=== PATIENT | female | born 1955 ===

== ENCOUNTER 2017-06-27 14:02 | Inpatient (IN) | payer MEDICAID ==
[2017-06-27 14:03] VITALS: BMI 28.9
--- NOTE | 2017-06-27 14:44 | ED PDOC ---
Syncope/Near Syncope/Dizziness Time Seen by Provider: 06/27/17 14:19 Chief Complaint (Nursing): Syncope Chief Complaint (Provider): Syncope History Per: Patient, Family (Daughter) History/Exam Limitations: no limitations Additional Complaint(s): 62 y/o female with a past medical history of hypertension, diabetes, hypothyroidism, and hypercholesterolemia who presents to the emergency department accompanied by daughter after experiencing a syncopal episode prior to arrival. As per history from daughter, she witnessed patient sitting at the table as she started to lean down towards the floor and initially thought she was going to reach for something but then realized and caught her before she fell and laid her down. States patient had loss of consciousness for 1 minute and noted she was having shakes when she woke up. Patient states she has chills and is feeling anxious at the moment because she had passed out before in the past that only lasted seconds without loss of consciousness compared to this episode that was stronger and lasted longer. She also states having right leg swelling ongoing since her knee surgery about 1 month go that has been improving since with intermittent shortness of breath for the last 2 months although she is currently no short of breath. Denies lethargy or postictal state after episode,convulsive activity, chest pain, shortness of breath, or headache. Of note, patient states she had a bad headache last night that resolved spontaneously as well as experiencing difficulty sleeping for three days ago that also resolved on its on. Reports she had a good amount of sleep last night and ate breakfast around 8am this morning but had not eaten lunch yet. PMD: De. Darlyn Castillo MD Certified Prosthetist/Orthotist: Dr. Yfn SANABRIA Past Medical History Reviewed: Historical Data, Nursing Documentation, Vital Signs Vital Signs: Last Vital Signs Temp 98.3 F 06/27/17 14:08 Pulse 71 06/27/17 14:08 Resp 16 06/27/17 14:08 BP 137/70 06/27/17 14:08 Pulse Ox 100 06/27/17 14:08 - Medical History PMH: Diabetes, HTN, Hypercholesterolemia, Hypothyroidism Denies: HIV, Chronic Kidney Disease - Surgical History Surgical History: (x3) - Family History Family History: States: Diabetes, Hypertension - Social History Current smoker - smoking cessation education provided: No Alcohol: None Drugs: Denies - Home Medications Home Medications: Ambulatory Orders Medication Instructions Recorded Aspirin [Aspirin EC] 81 mg PO DAILY 05/28/15 Enalapril Maleate [Vasotec] 2.5 mg PO DAILY 05/28/15 Levothyroxine Sodium [Synthroid] 75 mcg PO DAILY 05/28/15 Simvastatin 10 mg PO HS 05/28/15 Insulin Lispro [humALOG] 30 unit SC DAILY 06/27/17 Insulin Lispro [humALOG] 35 unit SC DAILY 06/27/17 - Allergies Allergies/Adverse Reactions: Allergies Allergy/AdvReac Type Severity Reaction Status Date / Time No Known Allergies Allergy Verified 06/27/17 14:08 Review of Systems ROS Statement: Except As Marked, All Systems Reviewed And Found Negative (As per HPI otherwise negative) Constitutional: Positive for: Chills (Shakes). Negative for: Other (Lethargy or postictal state or convulsive activity) Cardiovascular: Negative for: Chest Pain Respiratory: Negative for: Shortness of Breath Musculoskeletal: Positive for: Other (Right leg swelling status post knee surgery (improving)) Neurological: Positive for: Other (Syncope and Loss of consciousness ). Negative for: Headache Psych: Positive for: Anxiety Physical Exam - Reviewed Nursing Documentation Reviewed: Yes Vital Signs Reviewed: Yes - Physical Exam Appears: Positive for: Non-toxic, In Acute Distress (tired appearing and anxious ) Head Exam: Positive for: ATRAUMATIC, NORMOCEPHALIC Skin: Positive for: Warm, Dry Eye Exam: Positive for: EOMI, PERRL. Negative for: Nystagmus ENT: Positive for: Other (tacky mucus membranes) Neck: Positive for: Painless ROM, Supple Cardiovascular/Chest: Positive for: Regular Rate, Rhythm, Chest Non Tender. Negative for: Murmur Respiratory: Positive for: Normal Breath Sounds. Negative for: Respiratory Distress Gastrointestinal/Abdominal: Positive for: Soft. Negative for: Tenderness Back: Positive for: Normal Inspection. Negative for: Decreased ROM Extremity: Positive for: Normal ROM. Negative for: Deformity Lymphatic: Negative for: Adenopathy Neurologic/Psych: Positive for: Alert, health services rn II-XII (intact), Oriented (x3), Mood/ Affect (anxious affect). Negative for: Motor/Sensory Deficits, Aphasia, Facial Droop - Laboratory Results Result Diagrams: 06/27/17 14:50 06/29/17 10:25 - ECG O2 Sat by Pulse Oximetry: 100 (RA) Pulse Ox Interpretation: Normal Medical Decision Making Medical Decision Making: Time: 1431 Initial impression: Syncope differential includes vasovagal syncope, arrhythmia , transient ischemic attack (TIA), electrolyte abnormality, acute coronary syndrome (ACS), and seizure Initial plan: --Blood Work and Labs Ordered --EKG --AccuChec --Chest x-ray --Duplex US --Head CT --Reevaluation Pt to be hospitalized for observation given pt has cardiac risk factors for a transient arrythmia, pending ER workup. EKG: Normal sinus rhythm at 70 bpm with left bundle branch block. Similar to previous EKG from December 2015. Time: 1450 D-Dimer, Quantitative: 2777 (High) Time: 1536 --Chest x-ray FINDINGS: LUNGS: The lungs are well inflated and clear. PLEURA: No significant pleural effusion identified, no pneumothorax apparent. CARDIOVASCULAR: Normal. OSSEOUS STRUCTURES: No significant abnormalities. VISUALIZED UPPER ABDOMEN: Normal. OTHER FINDINGS: None. IMPRESSION: No active pulmonary disease. Time: 1608 --Head CT FINDINGS: HEMORRHAGE: No intracranial hemorrhage. BRAIN: There are mild chronic microangiopathic changes. There is no mass, mass effect or abnormal extra-axial fluid collection. There is no territorial infarction. There are coarse atherosclerotic calcifications in the cavernous carotid arteries. VENTRICLES: There is mild age-related global parenchymal volume loss and proportionate enlargement of the ventricles and cortical sulci. There is a cavum vergae. CALVARIUM: The skull base and calvarium are normal. PARANASAL SINUSES: Predominantly clear. MASTOID AIR CELLS: Predominantly clear. OTHER FINDINGS: None. IMPRESSION: No acute intracranial abnormality. Mild chronic microangiopathic changes and mild age-related global parenchymal volume loss. Time: 1625 --Duplex US FINDINGS: COMMON FEMORAL VEIN: There is normal direction of flow, compressibility and augmentation response. SUPERFICIAL FEMORAL VEIN: There is normal direction of flow, compressibility and augmentation response. POPLITEAL VEIN: There is normal direction of flow, compressibility and augmentation response. POSTERIOR TIBIAL VEIN: There is normal direction of flow, compressibility and augmentation response. OTHER FINDINGS: None. IMPRESSION: No evidence of deep venous thrombosis in the right lower extremity. Time: 1621 --Angio Chest PE Protocal CT [address] Findings: Visualized portions of the inferior thyroid gland appear unremarkable. The mediastinal and hilar vascular structures appear within normal limits. The heart appears within normal limits of size. No large central or segmental pulmonary embolus evident. No focal consolidation. No pleural effusion. No pneumothorax. No suspicious pulmonary nodules measuring greater than 5 mm. Limited visualized portions of the upper abdomen appear grossly unremarkable. Degenerative changes. Impression: No large central or segmental pulmonary embolus identified. Scribe Attestation: Documented by Natalie Garcia, acting as a scribe for Micheline Brown MD. Provider Scribe Attestation: All medical record entries made by the Scribe were at my direction and personally dictated by me. I have reviewed the chart and agree that the record accurately reflects my personal performance of the history, physical exam, medical decision making, and the department course for this patient. I have also personally directed, reviewed, and agree with the discharge instructions and disposition. Disposition - Clinical Impression Clinical Impression: Syncope and collapse Discussed With Dr.: Real Mitchell Doctor Will See Patient In The: Hospital Counseled Patient/Family Regarding: Studies Performed, Diagnosis - Disposition Disposition Time: 14:30 Condition: GUARDED - Pt Status Changed To: Hospital Disposition Of: Observation - POA Present On Arrival: Falls Or Trauma
[2017-06-27 14:59] LABS: BASO % 0.6 % (0.0-2.0); EOS # 0.2 K/uL (0.0-0.7); EOS % 2.7 % (0.0-4.0); LYMPH # 1.7 K/uL (1.0-4.3); LYMPH % 22.9 % (20.0-40.0); MEAN CELL VOLUME 86.1 fl (81.0-99.0); MEAN CORPUSCULAR HEMOGLOBIN 28.3 pg (27.0-31.0); MEAN CORPUSCULAR HGB CONC 32.8 g/dL (33.0-37.0); MEAN PLATELET VOLUME 7.9 fl (7.2-11.7); MONO # 0.5 K/uL (0.0-0.8); MONO % 7.2 % (0.0-10.0); NEUT # 4.8 K/uL (1.8-7.0); NEUT % 66.6 % (50.0-75.0); RED CELL DISTRIBUTION WIDTH 14.2 % (11.5-14.5); WHITE BLOOD COUNT 7.3 K/uL (4.8-10.8)
[2017-06-27 15:08] LABS: ALB/GLOB RATIO 1.1 (1.0-2.1); ALKALINE PHOSPHATASE 77 U/L (38-126); ALT/SGPT 39 U/L (9-52); AST/SGOT 30 U/L (14-36); BILIRUBIN,TOTAL 0.3 mg/dl (0.2-1.3); BLOOD UREA NITROGEN 31 mg/dl (7-17); CALCIUM 9.5 mg/dL (8.4-10.2); CARBON DIOXIDE 20 mmol/L (22-30); CHLORIDE 112 mmol/L (98-107); GFR AFRICAN-AMERICAN > 60; GLUCOSE,RANDOM 113 mg/dL (65-105); MAGNESIUM 1.7 MG/DL (1.6-2.3); PHOSPHOROUS 3.1 mg/dl (2.5-4.5); SODIUM 143 mmol/l (132-148); TOTAL PROTEIN 7.4 G/DL (6.3-8.2)
[2017-06-27 15:17] LABS: PARTIAL THROMBOPLASTIN TIME 26.1 Seconds (25.6-37.1)
[2017-06-27 15:24] LABS: POTASSIUM 5.4 MMOL/L (3.6-5.0)
[2017-06-27 15:38] LABS: THYROID STIMULATING HORMONE 0.91 mIU/ML (0.46-4.68)
--- NOTE | 2017-06-27 15:38 | RAD ---
HISTORY: Syncope COMPARISON: No prior. FINDINGS: LUNGS: The lungs are well inflated and clear. PLEURA: No significant pleural effusion identified, no pneumothorax apparent. CARDIOVASCULAR: Normal. OSSEOUS STRUCTURES: No significant abnormalities. VISUALIZED UPPER ABDOMEN: Normal. OTHER FINDINGS: None. IMPRESSION: No active pulmonary disease.
--- NOTE | 2017-06-27 16:10 | CT ---
PROCEDURE: CT HEAD WITHOUT CONTRAST. HISTORY: Syncope COMPARISON: 05/28/2015. TECHNIQUE: Axial computed tomography images were obtained through the head/brain without intravenous contrast. Radiation dose: Total exam DLP = 818.00 mGy-cm. This CT exam was performed using one or more of the following dose reduction techniques: Automated exposure control, adjustment of the mA and/or kV according to patient size, and/or use of iterative reconstruction technique. FINDINGS: HEMORRHAGE: No intracranial hemorrhage. BRAIN: There are mild chronic microangiopathic changes. There is no mass, mass effect or abnormal extra-axial fluid collection. There is no territorial infarction. There are coarse atherosclerotic calcifications in the cavernous carotid arteries. VENTRICLES: There is mild age-related global parenchymal volume loss and proportionate enlargement of the ventricles and cortical sulci. There is a cavum vergae. CALVARIUM: The skull base and calvarium are normal. PARANASAL SINUSES: Predominantly clear. MASTOID AIR CELLS: Predominantly clear. OTHER FINDINGS: None. IMPRESSION: No acute intracranial abnormality. Mild chronic microangiopathic changes and mild age-related global parenchymal volume loss.
[2017-06-27] MEDS ORDERED: Sodium Chloride 0.9% 500 ML IV STA (16:20)
--- NOTE | 2017-06-27 16:26 | US ---
PROCEDURE: Right lower extremity venous duplex Doppler. HISTORY: Leg swelling recent knee surgery COMPARISON: None available. TECHNIQUE: Common femoral, superficial femoral, popliteal and posterior tibial veins were evaluated. Flow was assessed with color Doppler, compressibility, assessment of phasic flow and augmentation response. FINDINGS: COMMON FEMORAL VEIN: There is normal direction of flow, compressibility and augmentation response. SUPERFICIAL FEMORAL VEIN: There is normal direction of flow, compressibility and augmentation response. POPLITEAL VEIN: There is normal direction of flow, compressibility and augmentation response. POSTERIOR TIBIAL VEIN: There is normal direction of flow, compressibility and augmentation response. OTHER FINDINGS: None. IMPRESSION: No evidence of deep venous thrombosis in the right lower extremity.
[2017-06-27 16:31] LABS: RBC URINE 10 /hpf (0-3); URINE BACTERIA RARE (<OCC); URINE BILIRUBIN NEGATIVE (NEGATIVE); URINE BLOOD SMALL (NEGATIVE); URINE COLOR YELLOW (YELLOW); URINE GLUCOSE (UA) 50 mg/dL (Normal); URINE KETONE NEGATIVE (NEGATIVE); URINE LEUKOCYTE ESTERASE SMALL Leu/uL (Negative); URINE PROTEIN NEGATIVE (NEGATIVE); URINE UROBILINOGEN 0.2-1.0 mg/dL (0.2-1.0); WBC URINE 18 /hpf (0-5)
[2017-06-27] MEDS ORDERED: Iodixanol 320 MG/ML 100 ML BOTTLE IV ONE (16:33)
[2017-06-27] MEDS ORDERED: Sodium Chloride 0.9% 50 ML IV ONE (16:34)
--- NOTE | 2017-06-27 17:33 | CT ---
CTA chest PE protocol Indication: sob, elevated ddimer Technique: Contiguous axial images were obtained through the chest with intravenous contrast enhancement. Sagittal and coronal reconstructions were generated and reviewed. This CT exam was performed using 1 or more of the falling dose reduction techniques: Automated exposure control, adjustment of the MAA and/or kV according to patient size, and/or use of iterative reconstruction technique. IV Contrast: 80 mL Visipaque 320 Radiation dose (DLP): 352.71 MGy-cm. Comparison: Chest x-ray performed 06/27/17 Findings: Visualized portions of the inferior thyroid gland appear unremarkable. The mediastinal and hilar vascular structures appear within normal limits. The heart appears within normal limits of size. No large central or segmental pulmonary embolus evident. No focal consolidation. No pleural effusion. No pneumothorax. No suspicious pulmonary nodules measuring greater than 5 mm. Limited visualized portions of the upper abdomen appear grossly unremarkable. Degenerative changes. Impression: No large central or segmental pulmonary embolus identified.
[2017-06-28] MEDS: Levothyroxine 25 MCG TAB PO SCH (06:38)
--- NOTE | 2017-06-28 07:49 | CP.PCM.HP ---
History of Present Illness - History of Present Illness History of Present Illness: CC: Passed out History of Present Illness: A 62 y/o female with a past medical history of hypertension, diabetes, hypothyroidism, and hypercholesterolemia who presents to the emergency department accompanied by daughter after experiencing a syncopal episode prior to arrival. As per history from daughter, she witnessed patient sitting at the table as she started to lean down towards the floor and initially thought she was going to reach for something but then realized and caught her before she fell and laid her down. States patient had loss of consciousness for 1 minute and noted she was having shakes when she woke up. Patient states she has chills and is feeling anxious at the moment because she had passed out before in the past that only lasted seconds without loss of consciousness compared to this episode that was stronger and lasted longer. She also states having right leg swelling ongoing since her knee surgery about 1 month go that has been improving since with intermittent shortness of breath for the last 2 months although she is currently no short of breath. Denies lethargy or postictal state after episode,convulsive activity, chest pain, shortness of breath, or headache. Of note, patient states she had a bad headache last night that resolved spontaneously as well as experiencing difficulty sleeping for three days ago that also resolved on its on. Reports she had a good amount of sleep last night and ate breakfast around 8am this morning but had not eaten lunch yet. Present on Admission - Present on Admission Any Indicators Present on Admission: No History of DVT/PE: No History of Uncontrolled Diabetes: No Urinary Catheter: No Decubitus Ulcer Present: No Review of Systems - Review of Systems All systems: reviewed and no additional remarkable complaints except Past Patient History - Past Medical History & Family History Past Medical History?: Yes - Past Social History Alcohol: None Drugs: Denies - CARDIAC Hx Hypercholesterolemia: Yes Hx Hypertension: Yes - PULMONARY Hx Respiratory Disorders: No - NEUROLOGICAL Hx Neurological Disorder: No - HEENT Hx HEENT Problems: No - RENAL Hx Chronic Kidney Disease: No - ENDOCRINE/METABOLIC Hx Hypothyroidism: Yes - HEMATOLOGICAL/ONCOLOGICAL Hx Human Immunodeficiency Virus (HIV): No - INTEGUMENTARY Hx Dermatological Problems: No - MUSCULOSKELETAL/RHEUMATOLOGICAL Hx Musculoskeletal Disorders: Yes Hx Back Pain: Yes Hx Falls: No - GASTROINTESTINAL Hx Gastrointestinal Disorders: No - GENITOURINARY/GYNECOLOGICAL Hx Genitourinary Disorders: No - PSYCHIATRIC Hx Psychophysiologic Disorder: No Hx Emotional Abuse: No Hx Physical Abuse: No Hx Substance Use: No - SURGICAL HISTORY Hx Surgeries: Yes Hx Section: Yes (x3) Hx Hysterectomy: Yes Hx Orthopedic Surgery: Yes (left knee replacement) - ANESTHESIA Hx Anesthesia: Yes Hx Anesthesia Reactions: No Hx Malignant Hyperthermia: No Meds Allergies/Adverse Reactions: Allergies Allergy/AdvReac Type Severity Reaction Status Date / Time No Known Allergies Allergy Verified 06/27/17 14:08 Results - Vital Signs Recent Vital Signs: Last Vital Signs Temp 98.3 F 06/27/17 14:08 Pulse 64 06/28/17 05:31 Resp 16 06/28/17 05:31 BP 134/70 06/28/17 05:31 Pulse Ox 100 06/28/17 05:31 - Labs Result Diagrams: 06/27/17 14:50 06/27/17 14:50 Labs: Laboratory Results - last 24 hr 06/27/17 06/27/17 06/27/17 14:46 14:50 14:50 WBC 7.3 RBC 3.48 L Hgb 9.9 L Hct 30.0 L MCV 86.1 D MCH 28.3 MCHC 32.8 L RDW 14.2 Plt Count 197 MPV 7.9 Neut % (Auto) 66.6 Lymph % (Auto) 22.9 Rice % (Auto) 7.2 Eos % (Auto) 2.7 Baso % (Auto) 0.6 Neut # 4.8 Lymph # 1.7 Rice # 0.5 Eos # 0.2 Baso # 0.0 PT INR APTT D-Dimer, Quantitative Sodium 143 Potassium 5.4 H Chloride 112 H Carbon Dioxide 20 L Anion Gap 16 BUN 31 H Creatinine 1.1 Est GFR ( Amer) > 60 Est GFR (Non-Af Amer) 50 POC Glucose (mg/dL) 133 H Random Glucose 113 H Calcium 9.5 Phosphorus 3.1 Magnesium 1.7 Total Bilirubin 0.3 AST 30 ALT 39 Alkaline Phosphatase 77 Troponin I < 0.0120 Total Protein 7.4 Albumin 3.9 Globulin 3.5 Albumin/Globulin Ratio 1.1 TSH 3rd Generation 0.91 Urine Color Urine Clarity Urine pH Ur Specific [place] Urine Protein Urine Glucose (UA) Urine Ketones Urine Blood Urine Nitrate Urine Bilirubin Urine Urobilinogen Ur Leukocyte Esterase Urine RBC (Auto) Urine Microscopic WBC Ur Squamous Epith Cells Amorphous Sediment Urine Bacteria Hyaline Casts Blood Type Antibody Screen BBK History Checked 06/27/17 06/27/17 06/27/17 14:50 14:50 15:55 WBC RBC Hgb Hct MCV MCH MCHC RDW Plt Count MPV Neut % (Auto) Lymph % (Auto) Rice % (Auto) Eos % (Auto) Baso % (Auto) Neut # Lymph # Rice # Eos # Baso # PT 11.4 INR 1.0 APTT 26.1 D-Dimer, Quantitative 2777 H Sodium Potassium Chloride Carbon Dioxide Anion Gap BUN Creatinine Est GFR ( Amer) Est GFR (Non-Af Amer) POC Glucose (mg/dL) Random Glucose Calcium Phosphorus Magnesium Total Bilirubin AST ALT Alkaline Phosphatase Troponin I Total Protein Albumin Globulin Albumin/Globulin Ratio TSH 3rd Generation Urine Color Yellow Urine Clarity Cloudy Urine pH 6.0 Ur Specific [place] 1.011 Urine Protein Negative Urine Glucose (UA) 50 Urine Ketones Negative Urine Blood Small Urine Nitrate Negative Urine Bilirubin Negative Urine Urobilinogen 0.2-1.0 Ur Leukocyte Esterase Small Urine RBC (Auto) 10 H Urine Microscopic WBC 18 H Ur Squamous Epith Cells 5 Amorphous Sediment Rare H Urine Bacteria Rare Hyaline Casts 0-2 Blood Type A POSITIVE Antibody Screen Negative BBK History Checked Patient has bt 06/27/17 06/27/17 06/28/17 21:03 23:35 06:00 WBC RBC Hgb Hct MCV MCH MCHC RDW Plt Count MPV Neut % (Auto) Lymph % (Auto) Rice % (Auto) Eos % (Auto) Baso % (Auto) Neut # Lymph # Rice # Eos # Baso # PT INR APTT D-Dimer, Quantitative Sodium Potassium Chloride Carbon Dioxide Anion Gap BUN Creatinine Est GFR ( Amer) Est GFR (Non-Af Amer) POC Glucose (mg/dL) 94 Random Glucose Calcium Phosphorus Magnesium Total Bilirubin AST ALT Alkaline Phosphatase Troponin I < 0.0120 < 0.0120 Total Protein Albumin Globulin Albumin/Globulin Ratio TSH 3rd Generation Urine Color Urine Clarity Urine pH Ur Specific [place] Urine Protein Urine Glucose (UA) Urine Ketones Urine Blood Urine Nitrate Urine Bilirubin Urine Urobilinogen Ur Leukocyte Esterase Urine RBC (Auto) Urine Microscopic WBC Ur Squamous Epith Cells Amorphous Sediment Urine Bacteria Hyaline Casts Blood Type Antibody Screen BBK History Checked - Imaging and Cardiology Chest x-ray Status: Report reviewed by me Additional comment: HISTORY: Syncope COMPARISON: No prior. FINDINGS: LUNGS: The lungs are well inflated and clear. PLEURA: No significant pleural effusion identified, no pneumothorax apparent. CARDIOVASCULAR: Normal. OSSEOUS STRUCTURES: No significant abnormalities. VISUALIZED UPPER ABDOMEN: Normal. OTHER FINDINGS: None. IMPRESSION: No active pulmonary disease. CT scan - head Status: Report reviewed by me Additional comment: No Acute finding CT scan - chest Status: Report reviewed by me Additional comment: No PE U/S Venous Doppler B/L LE: Status: Report reviewed by me Additional comment: No DVT Assessment & Plan (1) Passed out Assessment and Plan: Syncope Vs R/O Seizure Episode R/O ACS Status: Acute (2) Anemia Status: Acute (3) HTN (hypertension) Status: Chronic Priority: Medium
[2017-06-28] MEDS: Insulin Lispro Mix 75/25 100 units/ml (HumaLog) 10ml SC SCH ×2 (08:38→17:30)
[2017-06-28] MEDS ORDERED: CALCIUM PO SCH (09:00)
[2017-06-28] MEDS ORDERED: FOLIC ACID PO SCH (09:00)
[2017-06-28] MEDS ORDERED: CA PANTOTHENATE PO SCH (09:00)
[2017-06-28] MEDS ORDERED: VITAMIN D PO SCH (09:00)
[2017-06-28] MEDS ORDERED: [UNRECOGNIZED DRUG - OTHER] PO SCH (09:00)
[2017-06-28] MEDS ORDERED: LEVOTHYROXINE SODIUM 25 MCG PO SCH (09:00)
[2017-06-28] MEDS ORDERED: Pravastatin Sodium 20 MG TAB PO ONE (09:03)
[2017-06-28] MEDS ORDERED: Perflutren Lipid Microsphere 1.5 ML SUS IV ONE (09:37)
[2017-06-28] MEDS: Calcium-Vit D 500 mg-200 Units Tab UD PO SCH (11:01)
[2017-06-28] MEDS: Pravastatin Sodium 20 MG TAB PO SCH (11:01)
[2017-06-28] MEDS: Multivitamin With Minerals Tab PO SCH (11:01)
--- NOTE | 2017-06-28 17:17 | CARD ---
APPROVED REPORT EXAM: Two-dimensional and M-mode echocardiogram with Doppler, color Doppler with contrast. Other Information Quality : GoodRhythm : NSR INDICATION Syncope Echo Enhancing Agent Indication: Endocardial border delineation Agent/Amount Used: Definity 2D DIMENSIONS IVSd0.93 (0.7-1.1cm)LVDd4.13 (3.9-5.9cm) LVOT Diameter1.83 (1.8-2.4cm)PWd0.96 (0.7-1.1cm) IVSs1.29 (0.8-1.2cm)LVDs2.94 (2.5-4.0cm) FS (%) 28.8 %PWs1.18 (0.8-1.2cm) LVEF (%)55.0 (>50%) M-Mode DIMENSIONS Left Atrium (MM)4.00 (2.5-4.0cm)IVSd0.91 (0.7-1.1cm) Aortic Root3.06 (2.2-3.7cm)LVDd5.68 (4.0-5.6cm) Aortic Cusp Exc.1.85 (1.5-2.0cm)PWd1.03 (0.7-1.1cm) IVSs1.50 cmFS (%) 50 % LVDs2.82 (2.0-3.8cm)PWs1.32 cm Mitral Valve MV E Wbjeicum56.6cm/sMV DECEL [id number] A Vxvprsar51.3cm/s MV VGE14xaI/A ratio0.8MVA (PHT)2.79cm2 TDI Lateral E' Peak V4.73cm/sMedial E' Peak V4.97cm/sE/Lateral E'17.5 E/Medial E'16.6 LEFT VENTRICLE The left ventricle is normal size. Proximal septal thickening is noted. The left ventricular function is normal. The left ventricular ejection fraction is within the normal range. There is normal LV segmental wall motion. Transmitral Doppler flow pattern is Grade I-abnormal relaxation pattern. RIGHT VENTRICLE The right ventricle is normal size. There is normal right ventricular wall thickness. The right ventricular systolic function is normal. ATRIA The left atrium size is normal. The right atrium size is normal. AORTIC VALVE The aortic valve is normal in structure. No aortic regurgitation is present. There is no aortic valvular stenosis. MITRAL VALVE The mitral valve is moderately thickened but opens well. There is no mitral valve stenosis. There is no mitral valve regurgitation noted. TRICUSPID VALVE The tricuspid valve is normal in structure. There is no tricuspid valve regurgitation noted. PULMONIC VALVE The pulmonary valve is normal in structure. There is no pulmonic valvular regurgitation. GREAT VESSELS The aortic root is normal in size. The IVC was not visualized. PERICARDIAL EFFUSION The pericardium appears normal. <Conclusion> The left ventricle is normal size. Proximal septal thickening is noted. The left ventricular function is normal. The left ventricular ejection fraction is within the normal range. There is normal LV segmental wall motion. Transmitral Doppler flow pattern is Grade I-abnormal relaxation pattern.
--- NOTE | 2017-06-28 18:12 | CARD ---
APPROVED REPORT EKG Measurement Heart [id number] <Conclusion> Normal sinus rhythm Left bundle branch block Abnormal ECG
--- NOTE | 2017-06-28 18:22 | CP.PCM.CON ---
History of Present Illness - History of Present Illness History of Present Illness: I was asked to evaluate patient by Dr Mitchell. Patient is a 62 year old female with PMH HTN hypercholesterolemia who presents with syncope. The patient was at home when she appeared to slump forward. The patient denies preceding chest pain or palpitations. She does not remember the event. Of note stress test performed this year revealed normal myocardial perfusion and normal left ventricular function. Review of Systems - Constitutional Constitutional: absent: As Per HPI, Anorexia, Chills, Daytime Sleepiness, Excessive Sweating, Fatigue, Fever, Frequent Falls, Headache, Increased Appetite , Lethargy, Malaise, Night Sweats, Snoring, Sleep Apnea, Weight Gain, Weight Loss, Weakness, Other - EENT Eyes: absent: As Per HPI, Blind Spots, Blurred Vision, Change in Vision, Decreased Night Vision, Diplopia, Discharge, Dry Eye, Exophthalmos, Floaters, Irritation, Itchy Eyes, Loss of Peripheral Vision, Pain, Photophobia, Requires Corrective Lenses, Sees Flashes, Spots in Vision, Tunnel Vision, Other Visual Disturbances, Loss of Vision, Other Ears: absent: As Per HPI, Decreased Hearing, Ear Discharge, Ear Pain, Tinnitus, Abnormal Hearing, Disequilibrium, Dizziness, Other Nose/Mouth/Throat: absent: As Per HPI, Epistaxis, Nasal Congestion, Nasal Discharge, Nasal Obstruction, Nasal Trauma, Nose Pain, Post Nasal Drip, Sinus Pain, Sinus Pressure, Bleeding Gums, Change in Voice, Dental Pain, Dry Mouth, Dysphagia, Halitosis, Hoarsness, Lip Swelling, Mouth Lesions, Mouth Pain, Odynophagia, Sore Throat, Throat Swelling, Tongue Swelling, Facial Pain, Neck Pain, Neck Mass, Other - Breasts Breasts: absent: As Per HPI, Change in Shape, Mass, Pain, Nipple Discharge, Nipple Inversion, Skin Changes, Swelling, Other - Cardiovascular Cardiovascular: absent: As Per HPI, Acrocyanosis, Chest Pain, Chest Pain at Rest , Chest Pain with Activity, Claudication, Diaphoresis, Dyspnea, Dyspnea on Exertion, Edema, Irregular Heart Rhythm, Pain Radiating to Arm/Neck/Jaw, Leg Edema, Leg Ulcers, Lightheadedness, Orthopnea, Palpitations, Paroxysmal Nocturnal Dyspnea, Pedal Edema, Radiating Pain, Rapid Heart Rate, Slow Heart Rate, Syncope, Other - Respiratory Respiratory: absent: As Per HPI, Cough, Dyspnea, Hemoptysis, Dyspnea on Exertion , Wheezing, Snoring, Stridor, Pain on Inspiration, Chest Congestion, Excessive Mucous Production, Change in Mucous Color, Pain with Coughing, Other - Gastrointestinal Gastrointestinal: absent: As Per HPI, Abdominal Pain, Belching, Bloating, Change in Bowel Habits, Change in Stool Character, Coffee Ground Emesis, Constipation, Cramping, Diarrhea, Dyspepsia, Dysphagia, Early Satiety, Excessive Flatus, Fecal Incontinence, Heartburn, Hematemesis, Hematochezia, Loose Stools, Melena, Nausea, Odynophagia, Temesmus, Vomiting, Other - Genitourinary Genitourinary: absent: As Per HPI, Change in Urinary Stream, Difficulty Urinating, Dysuria, Flank Pain, Hematuria, Pyuria, Nocturia, Urinary Incontinence, Urinary Frequency, Urinary Hesitance, Urinary Urgency, Voiding Freq/Small Amts, Freq UTI, Hx Renal/Bladder Calculi, Hx /Renal Surgery, Bladder Distension, Other - Musculoskeletal Musculoskeletal: absent: As Per HPI, Abnormal Gait, Arthralgias, Atrophy, Back Pain, Deformity, Joint Swelling, Limited Range of Motion, Loss of Height, Muscle Cramps, Muscle Weakness, Myalgias, Neck Pain, Numbness, Radiating Pain into Limb, Stiffness, Tingling, Other - Integumentary Integumentary: absent: As Per HPI, Acne, Alopecia, Bleeding Lesions, Change in Hair, Change in Nails, Change in Pigmentation, Changing Lesions, Dry Skin, Erythema, Furuncle, Hirsutism, Lesions, New Lesions, Non-Healing Lesions, Photosensitivity, Pruritus, Rash, Skin Pain, Skin Ulcer, Sores, Striae, Swelling , Unusual Bruising, Wounds, Jaundice, Other - Neurological Neurological: absent: As Per HPI, Abnormal Gait, Abnormal Hearing, Abnormal Movements, Abnormal Speech, Behavioral Changes, Burning Sensations, Confusion, Convulsions, Disequilibrium, Dizziness, Numbness, Focal Weakness, Frequent Falls , Headaches, Lack of Coordination, Loss of Vision, Memory Loss, Paresthesias, Radicular Pain, Restless Legs, Sensory Deficit, Syncope, Tingling, Tremor, Vertigo, Weakness, Other Visual Disturbances, Other - Psychiatric Psychiatric: absent: As Per HPI, Abnormal Sleep Pattern, Anhedonia, Anxiety, Auditory Hallucinations, Behavioral Changes, Change in Appetite, Change in Libido, Confusion, Depression, Difficulty Concentrating, Hallucinations, Homicidal Ideation, Hopelessness, Irritability, Memory Loss, Mood Swings, Panic Attacks, Paranoia, Suicidal Ideation, Visual Hallucinations, Tactile Hallucinations, Other - Endocrine Endocrine: absent: As Per HPI, Change in Body Appearance, Change in Libido, Cold Intolorance, Deepening of Voice, Excessive Sweating, Fatigue, Flushing, Heat Intolorance, Increase in Ring/Shoe/Hat Size, Palpitations, Polydipsia, Polyphagia, Polyuria, Other Past Patient History - Past Medical History & Family History Past Medical History?: Yes - Past Social History Smoking Status: Never Smoked - CARDIAC Hx Hypercholesterolemia: Yes Hx Hypertension: Yes - PULMONARY Hx Respiratory Disorders: No - NEUROLOGICAL Hx Neurological Disorder: No - HEENT Hx HEENT Problems: No - RENAL Hx Chronic Kidney Disease: No - ENDOCRINE/METABOLIC Hx Hypothyroidism: Yes - HEMATOLOGICAL/ONCOLOGICAL Hx Human Immunodeficiency Virus (HIV): No - INTEGUMENTARY Hx Dermatological Problems: No - MUSCULOSKELETAL/RHEUMATOLOGICAL Hx Falls: Yes - GASTROINTESTINAL Hx Gastrointestinal Disorders: No - GENITOURINARY/GYNECOLOGICAL Hx Genitourinary Disorders: No - PSYCHIATRIC Hx Substance Use: No - SURGICAL HISTORY Hx Surgeries: Yes Hx Section: Yes (x3) Hx Hysterectomy: Yes Hx Orthopedic Surgery: Yes (left knee replacement) - ANESTHESIA Hx Anesthesia: Yes Hx Anesthesia Reactions: No Hx Malignant Hyperthermia: No Meds Allergies/Adverse Reactions: Allergies Allergy/AdvReac Type Severity Reaction Status Date / Time No Known Allergies Allergy Verified 06/27/17 14:08 - Medications Medications: Current Medications Aspirin (Ecotrin) 81 mg PO HS [facility] Last Admin: 06/27/17 23:31 Dose: 81 mg Calcium/Vitamin D (Oyster Shell Calcium/Vitamin D 500 Mg-200 Iu) 1 tab PO DAILY [facility] Last Admin: 06/28/17 11:01 Dose: 1 tab Enalapril Maleate (Vasotec) 2.5 mg PO HS [facility] Last Admin: 06/27/17 23:32 Dose: Not Given Insulin Lispro Protam/Lispro Human (Humalog Mix 75/25) 22 units SC DIN [facility] Last Admin: 06/28/17 17:30 Dose: 22 units Insulin Lispro Protam/Lispro Human (Humalog Mix 75/25) 26 units SC BRK [facility] Last Admin: 06/28/17 08:38 Dose: 26 units Levothyroxine Sodium (Synthroid) 25 mcg PO DAILY@0630 [facility] Last Admin: 06/28/17 06:38 Dose: 25 mcg Multivitamins/Minerals (Therapeutic-M Tab) 1 tab PO DAILY [facility] Last Admin: 06/28/17 11:01 Dose: 1 tab Oxymetazoline HCl (Nasal Decongestant 15 Ml) 2 spr ROASMARIA DAILY PRN PRN Reason: Allergy symptoms Pravastatin Sodium (Pravachol) 20 mg PO DAILY [facility] Last Admin: 06/28/17 11:01 Dose: 20 mg Tramadol HCl (Ultram) 50 mg PO BID PRN PRN Reason: Other Physical Exam - Constitutional Appears: Non-toxic - Head Exam Head Exam: NORMAL INSPECTION - Eye Exam Eye Exam: Normal appearance - ENT Exam ENT Exam: Mucous Membranes Moist - Neck Exam Neck exam: Positive for: Full Rom - Respiratory Exam Respiratory Exam: NORMAL BREATHING PATTERN - Cardiovascular Exam Cardiovascular Exam: REGULAR RHYTHM - GI/Abdominal Exam GI & Abdominal Exam: Normal Bowel Sounds - Rectal Exam Rectal Exam: Deferred - Extremities Exam Extremities exam: Negative for: pedal edema - Back Exam Back exam: NORMAL INSPECTION - Neurological Exam Neurological exam: Alert, Oriented x3 - Psychiatric Exam Psychiatric exam: Normal Affect - Skin Skin Exam: Normal Color Results - Vital Signs Recent Vital Signs: Last Vital Signs Temp 98.3 F 06/27/17 14:08 Pulse 65 06/28/17 15:59 Resp 14 06/28/17 15:59 BP 149/77 06/28/17 08:05 Pulse Ox 100 06/28/17 15:59 - Labs Result Diagrams: 06/27/17 14:50 06/27/17 14:50 Labs: Laboratory Results - last 24 hr 06/27/17 06/27/17 06/27/17 14:46 21:03 23:35 POC Glucose (mg/dL) 133 H 94 Troponin I < 0.0120 06/28/17 06:00 POC Glucose (mg/dL) Troponin I < 0.0120 - EKG Data EKG Interpreted by: Myself EKG shows normal: Sinus rhythm Assessment & Plan (1) Syncope Assessment and Plan: unclear etiology. Doubt myocardial ischemia given normal stress test. recommend monitor on telemetry. can place outpatient event monitor if remains stable as inpatient. Status: Acute (2) HTN (hypertension) Assessment and Plan: monitor blood pressure Status: Chronic Priority: Medium
[2017-06-28] MEDS ORDERED: Pneumococcal 23-Valent Vaccine IM ONE (23:02)
[2017-06-29] MEDS: Levothyroxine 25 MCG TAB PO SCH (06:05)
[2017-06-29] MEDS: Insulin Lispro Mix 75/25 100 units/ml (HumaLog) 10ml SC SCH ×2 (08:44→17:09)
[2017-06-29 10:50] LABS: BLOOD UREA NITROGEN 29 mg/dl (7-17); CALCIUM 9.5 mg/dL (8.4-10.2); CARBON DIOXIDE 25 mmol/L (22-30); CHLORIDE 106 mmol/L (98-107); GFR AFRICAN-AMERICAN > 60; GLUCOSE,RANDOM 166 mg/dL (65-105); POTASSIUM 4.7 MMOL/L (3.6-5.0); SODIUM 139 mmol/l (132-148)
[2017-06-29] MEDS: Pravastatin Sodium 20 MG TAB PO SCH (10:58)
[2017-06-29] MEDS: Multivitamin With Minerals Tab PO SCH (10:58)
[2017-06-29] MEDS: Calcium-Vit D 500 mg-200 Units Tab UD PO SCH (10:59)
--- NOTE | 2017-06-29 13:49 | CP.PCM.PN ---
Subjective - Date & Time of Evaluation Date of Evaluation: 06/29/17 Time of Evaluation: 12:00 Objective - Vital Signs/Intake and Output Vital Signs (last 24 hours): Temp Pulse Resp BP Pulse Ox 98.7 F 67 20 124/74 99 06/29/17 12:00 06/29/17 12:00 06/29/17 12:00 06/29/17 12:00 06/29/17 12:00 - Medications Medications: Current Medications Aspirin (Ecotrin) 81 mg PO HS [facility] Last Admin: 06/28/17 22:02 Dose: 81 mg Calcium/Vitamin D (Oyster Shell Calcium/Vitamin D 500 Mg-200 Iu) 1 tab PO DAILY [facility] Last Admin: 06/29/17 10:59 Dose: 1 tab Enalapril Maleate (Vasotec) 2.5 mg PO HS [facility] Last Admin: 06/28/17 22:02 Dose: 2.5 mg Insulin Lispro Protam/Lispro Human (Humalog Mix 75/25) 22 units SC DIN [facility] Last Admin: 06/28/17 17:30 Dose: 22 units Insulin Lispro Protam/Lispro Human (Humalog Mix 75/25) 26 units SC BRK [facility] Last Admin: 06/29/17 08:44 Dose: 26 units Levothyroxine Sodium (Synthroid) 25 mcg PO DAILY@0630 [facility] Last Admin: 06/29/17 06:05 Dose: 25 mcg Multivitamins/Minerals (Therapeutic-M Tab) 1 tab PO DAILY [facility] Last Admin: 06/29/17 10:58 Dose: 1 tab Oxymetazoline HCl (Nasal Decongestant 15 Ml) 2 spr ROSAMARIA DAILY PRN PRN Reason: Allergy symptoms Pravastatin Sodium (Pravachol) 20 mg PO DAILY [facility] Last Admin: 06/29/17 10:58 Dose: 20 mg Tramadol HCl (Ultram) 50 mg PO BID PRN PRN Reason: Other - Labs Labs: 06/27/17 14:50 06/29/17 10:25 PT 11.4 Seconds (9.8-13.1) 06/27/17 14:50 INR 1.0 (0.9-1.2) 06/27/17 14:50 APTT 26.1 Seconds (25.6-37.1) 06/27/17 14:50 Assessment and Plan (1) Passed out Status: Acute (2) Anemia Status: Acute (3) HTN (hypertension) Status: Chronic
--- NOTE | 2017-06-29 17:18 | CP.PCM.CON ---
History of Present Illness - History of Present Illness History of Present Illness: Patient is a 62 year old female with PMH of HTN, hypercholesterolemia who presents with syncope. The patient was at home when she appeared to slump forward. She had SOB. The patient denies preceding chest pain or palpitations. She does not remember the event. Of note stress test performed this year revealed normal myocardial perfusion and normal left ventricular function. Review of Systems - Constitutional Constitutional: absent: As Per HPI, Anorexia, Chills, Daytime Sleepiness, Excessive Sweating, Fatigue, Fever, Frequent Falls, Headache, Increased Appetite , Lethargy, Malaise, Night Sweats, Snoring, Sleep Apnea, Weight Gain, Weight Loss, Weakness, Other - EENT Eyes: absent: As Per HPI, Blind Spots, Blurred Vision, Change in Vision, Decreased Night Vision, Diplopia, Discharge, Dry Eye, Exophthalmos, Floaters, Irritation, Itchy Eyes, Loss of Peripheral Vision, Pain, Photophobia, Requires Corrective Lenses, Sees Flashes, Spots in Vision, Tunnel Vision, Other Visual Disturbances, Loss of Vision, Other Ears: absent: As Per HPI, Decreased Hearing, Ear Discharge, Ear Pain, Tinnitus, Abnormal Hearing, Disequilibrium, Dizziness, Other Nose/Mouth/Throat: absent: As Per HPI, Epistaxis, Nasal Congestion, Nasal Discharge, Nasal Obstruction, Nasal Trauma, Nose Pain, Post Nasal Drip, Sinus Pain, Sinus Pressure, Bleeding Gums, Change in Voice, Dental Pain, Dry Mouth, Dysphagia, Halitosis, Hoarsness, Lip Swelling, Mouth Lesions, Mouth Pain, Odynophagia, Sore Throat, Throat Swelling, Tongue Swelling, Facial Pain, Neck Pain, Neck Mass, Other - Breasts Breasts: absent: As Per HPI, Change in Shape, Mass, Pain, Nipple Discharge, Nipple Inversion, Skin Changes, Swelling, Other - Cardiovascular Cardiovascular: absent: As Per HPI, Acrocyanosis, Chest Pain, Chest Pain at Rest , Chest Pain with Activity, Claudication, Diaphoresis, Dyspnea, Dyspnea on Exertion, Edema, Irregular Heart Rhythm, Pain Radiating to Arm/Neck/Jaw, Leg Edema, Leg Ulcers, Lightheadedness, Orthopnea, Palpitations, Paroxysmal Nocturnal Dyspnea, Pedal Edema, Radiating Pain, Rapid Heart Rate, Slow Heart Rate, Syncope, Other - Respiratory Respiratory: absent: As Per HPI, Cough, Dyspnea, Hemoptysis, Dyspnea on Exertion , Wheezing, Snoring, Stridor, Pain on Inspiration, Chest Congestion, Excessive Mucous Production, Change in Mucous Color, Pain with Coughing, Other - Gastrointestinal Gastrointestinal: absent: As Per HPI, Abdominal Pain, Belching, Bloating, Change in Bowel Habits, Change in Stool Character, Coffee Ground Emesis, Constipation, Cramping, Diarrhea, Dyspepsia, Dysphagia, Early Satiety, Excessive Flatus, Fecal Incontinence, Heartburn, Hematemesis, Hematochezia, Loose Stools, Melena, Nausea, Odynophagia, Temesmus, Vomiting, Other - Genitourinary Genitourinary: absent: As Per HPI, Change in Urinary Stream, Difficulty Urinating, Dysuria, Flank Pain, Hematuria, Pyuria, Nocturia, Urinary Incontinence, Urinary Frequency, Urinary Hesitance, Urinary Urgency, Voiding Freq/Small Amts, Freq UTI, Hx Renal/Bladder Calculi, Hx /Renal Surgery, Bladder Distension, Other - Musculoskeletal Musculoskeletal: absent: As Per HPI, Abnormal Gait, Arthralgias, Atrophy, Back Pain, Deformity, Joint Swelling, Limited Range of Motion, Loss of Height, Muscle Cramps, Muscle Weakness, Myalgias, Neck Pain, Numbness, Radiating Pain into Limb, Stiffness, Tingling, Other - Integumentary Integumentary: absent: As Per HPI, Acne, Alopecia, Bleeding Lesions, Change in Hair, Change in Nails, Change in Pigmentation, Changing Lesions, Dry Skin, Erythema, Furuncle, Hirsutism, Lesions, New Lesions, Non-Healing Lesions, Photosensitivity, Pruritus, Rash, Skin Pain, Skin Ulcer, Sores, Striae, Swelling , Unusual Bruising, Wounds, Jaundice, Other - Neurological Neurological: absent: As Per HPI, Abnormal Gait, Abnormal Hearing, Abnormal Movements, Abnormal Speech, Behavioral Changes, Burning Sensations, Confusion, Convulsions, Disequilibrium, Dizziness, Numbness, Focal Weakness, Frequent Falls , Headaches, Lack of Coordination, Loss of Vision, Memory Loss, Paresthesias, Radicular Pain, Restless Legs, Sensory Deficit, Syncope, Tingling, Tremor, Vertigo, Weakness, Other Visual Disturbances, Other - Psychiatric Psychiatric: absent: As Per HPI, Abnormal Sleep Pattern, Anhedonia, Anxiety, Auditory Hallucinations, Behavioral Changes, Change in Appetite, Change in Libido, Confusion, Depression, Difficulty Concentrating, Hallucinations, Homicidal Ideation, Hopelessness, Irritability, Memory Loss, Mood Swings, Panic Attacks, Paranoia, Suicidal Ideation, Visual Hallucinations, Tactile Hallucinations, Other - Endocrine Endocrine: absent: As Per HPI, Change in Body Appearance, Change in Libido, Cold Intolorance, Deepening of Voice, Excessive Sweating, Fatigue, Flushing, Heat Intolorance, Increase in Ring/Shoe/Hat Size, Palpitations, Polydipsia, Polyphagia, Polyuria, Other Past Patient History - Past Medical History & Family History Past Medical History?: Yes Past Social History Smoking Status: Never Smoked - CARDIAC Hx Hypercholesterolemia: Yes Hx Hypertension: Yes - PULMONARY Hx Respiratory Disorders: No - NEUROLOGICAL Hx Neurological Disorder: No - HEENT Hx HEENT Problems: No - RENAL Hx Chronic Kidney Disease: No - ENDOCRINE/METABOLIC Hx Hypothyroidism: Yes - HEMATOLOGICAL/ONCOLOGICAL Hx Human Immunodeficiency Virus (HIV): No - INTEGUMENTARY Hx Dermatological Problems: No - MUSCULOSKELETAL/RHEUMATOLOGICAL Hx Falls: Yes - GASTROINTESTINAL Hx Gastrointestinal Disorders: No - GENITOURINARY/GYNECOLOGICAL Hx Genitourinary Disorders: No - PSYCHIATRIC Hx Substance Use: No - SURGICAL HISTORY Hx Surgeries: Yes Hx Section: Yes (x3) Hx Hysterectomy: Yes Hx Orthopedic Surgery: Yes (left knee replacement) - ANESTHESIA Hx Anesthesia: Yes Hx Anesthesia Reactions: No Hx Malignant Hyperthermia: No Meds Allergies/Adverse Reactions: Allergies Allergy/AdvReac Type Severity Reaction Status Date / Time No Known Allergies Allergy Verified 06/27/17 14:08 Medications Medications: Current Medications Aspirin (Ecotrin) 81 mg PO HS [facility] Last Admin: 06/27/17 23:31 Dose: 81 mg Calcium/Vitamin D (Oyster Shell Calcium/Vitamin D 500 Mg-200 Iu) 1 tab PO DAILY [facility] Last Admin: 06/28/17 11:01 Dose: 1 tab Enalapril Maleate (Vasotec) 2.5 mg PO HS [facility] Last Admin: 06/27/17 23:32 Dose: Not Given Insulin Lispro Protam/Lispro Human (Humalog Mix 75/25) 22 units SC DIN [facility] Last Admin: 06/28/17 17:30 Dose: 22 units Insulin Lispro Protam/Lispro Human (Humalog Mix 75/25) 26 units SC BRK [facility] Last Admin: 11/08/17 08:38 Dose: 26 units Levothyroxine Sodium (Synthroid) 25 mcg PO DAILY@0630 [facility] Last Admin: 06/28/17 06:38 Dose: 25 mcg Multivitamins/Minerals (Therapeutic-M Tab) 1 tab PO DAILY [facility] Last Admin: 06/28/17 11:01 Dose: 1 tab Oxymetazoline HCl (Nasal Decongestant 15 Ml) 2 spr ROSAMARIA DAILY PRN PRN Reason: Allergy symptoms Pravastatin Sodium (Pravachol) 20 mg PO DAILY [facility] Last Admin: 06/28/17 11:01 Dose: 20 mg Tramadol HCl (Ultram) 50 mg PO BID PRN PRN Reason: Other Physical Exam - Constitutional Appears: Non-toxic - Head Exam Head Exam: NORMAL INSPECTION - Eye Exam Eye Exam: Normal appearance - ENT Exam ENT Exam: Mucous Membranes Moist - Neck Exam Neck exam: Positive for: Full Rom - Respiratory Exam Respiratory Exam: NORMAL BREATHING PATTERN - Cardiovascular Exam Cardiovascular Exam: REGULAR RHYTHM - GI/Abdominal Exam GI & Abdominal Exam: Normal Bowel Sounds - Rectal Exam Rectal Exam: Deferred - Extremities Exam Extremities exam: Negative for: pedal edema - Back Exam Back exam: NORMAL INSPECTION - Neurological Exam Neurological exam: Alert, Oriented x3 - Psychiatric Exam Psychiatric exam: Normal Affect - Skin Skin Exam: Normal Color Results - Vital Signs Recent Vital Signs: Last Vital Signs Temp 98.3 F 06/27/17 14:08 Pulse 65 06/28/17 15:59 Resp 14 06/28/17 15:59 BP 149/77 06/28/17 08:05 Pulse Ox 100 06/28/17 15:59 Labs: Laboratory Results - last 24 hr 06/27/17 06/27/17 06/27/17 14:46 21:03 23:35 POC Glucose (mg/dL) 133 H 94 Troponin I < 0.0120 06/28/17 06:00 POC Glucose (mg/dL) Troponin I < 0.0120 - EKG Data EKG Interpreted by: Myself EKG shows normal: Sinus rhythm IMPRESSION of C.T Brain: No acute intracranial abnormality. Mild chronic microangiopathic changes and mild age-related global parenchymal volume loss. Impression of C.T Chest: Obtained for SOB No large central or segmental pulmonary embolus identified. Assessment & Plan (1) Syncope Assessment and Plan: unclear etiology. Doubt myocardial ischemia given normal stress test. recommend monitor on telemetry. can place outpatient event monitor if remains stable as inpatient. Status: Acute (2) HTN (hypertension) Assessment and Plan: monitor blood pressure Status: Chronic Priority: Medium Past Patient History - Past Medical History & Family History Past Medical History?: Yes - Past Social History Smoking Status: Never Smoked - CARDIAC Hx Cardiac Disorders: Yes Hx Hypercholesterolemia: Yes Hx Hypertension: Yes - PULMONARY Hx Respiratory Disorders: No - NEUROLOGICAL Hx Neurological Disorder: No - HEENT Hx HEENT Problems: No - RENAL Hx Chronic Kidney Disease: No - ENDOCRINE/METABOLIC Hx Endocrine Disorders: Yes Hx Diabetes Mellitus Type 2: Yes Hx Hypothyroidism: Yes - HEMATOLOGICAL/ONCOLOGICAL Hx Anemia: Yes Hx Blood Transfusions: No Hx Human Immunodeficiency Virus (HIV): No - INTEGUMENTARY Hx Dermatological Problems: No - MUSCULOSKELETAL/RHEUMATOLOGICAL Hx Arthritis: Yes - GASTROINTESTINAL Hx Gastrointestinal Disorders: No - GENITOURINARY/GYNECOLOGICAL Hx Genitourinary Disorders: No - PSYCHIATRIC Hx Psychophysiologic Disorder: No Hx Substance Use: No - SURGICAL HISTORY Hx Surgeries: Yes Hx Cataract Extraction: Yes Hx Section: Yes (x3) Hx Hysterectomy: Yes Hx Orthopedic Surgery: Yes (total right knee replacement) - ANESTHESIA Hx Anesthesia: Yes Hx Anesthesia Reactions: No Hx Malignant Hyperthermia: No Meds Allergies/Adverse Reactions: Allergies Allergy/AdvReac Type Severity Reaction Status Date / Time No Known Allergies Allergy Verified 06/27/17 14:08 - Medications Medications: Current Medications Aspirin (Ecotrin) 81 mg PO HS [facility] Last Admin: 06/28/17 22:02 Dose: 81 mg Calcium/Vitamin D (Oyster Shell Calcium/Vitamin D 500 Mg-200 Iu) 1 tab PO DAILY [facility] Last Admin: 06/29/17 10:59 Dose: 1 tab Enalapril Maleate (Vasotec) 2.5 mg PO HS [facility] Last Admin: 06/28/17 22:02 Dose: 2.5 mg Insulin Lispro Protam/Lispro Human (Humalog Mix 75/25) 22 units SC DIN [facility] Last Admin: 06/28/17 17:30 Dose: 22 units Insulin Lispro Protam/Lispro Human (Humalog Mix 75/25) 26 units SC BRK [facility] Last Admin: 06/29/17 08:44 Dose: 26 units Levothyroxine Sodium (Synthroid) 25 mcg PO DAILY@0630 [facility] Last Admin: 06/29/17 06:05 Dose: 25 mcg Multivitamins/Minerals (Therapeutic-M Tab) 1 tab PO DAILY [facility] Last Admin: 06/29/17 10:58 Dose: 1 tab Oxymetazoline HCl (Nasal Decongestant 15 Ml) 2 spr ROSAMARIA DAILY PRN PRN Reason: Allergy symptoms Pravastatin Sodium (Pravachol) 20 mg PO DAILY [facility] Last Admin: 06/29/17 10:58 Dose: 20 mg Tramadol HCl (Ultram) 50 mg PO BID PRN PRN Reason: Other Results - Vital Signs Recent Vital Signs: Last Vital Signs Temp 98.6 F 06/29/17 15:50 Pulse 67 06/29/17 15:50 Resp 18 06/29/17 15:50 BP 148/76 06/29/17 15:50 Pulse Ox 99 06/29/17 15:50 - Labs Result Diagrams: 06/27/17 14:50 06/29/17 10:25 Labs: Laboratory Results - last 24 hr 06/28/17 06/28/17 06/28/17 05:53 12:06 16:54 Sodium Potassium Chloride Carbon Dioxide Anion Gap BUN Creatinine Est GFR ( Amer) Est GFR (Non-Af Amer) POC Glucose (mg/dL) 98 188 H 225 H Random Glucose Calcium 06/28/17 06/29/17 06/29/17 21:50 05:33 10:25 Sodium 139 Potassium 4.7 Chloride 106 Carbon Dioxide 25 Anion Gap 13 BUN 29 H Creatinine 1.0 Est GFR ( Amer) > 60 Est GFR (Non-Af Amer) 56 POC Glucose (mg/dL) 154 H 107 Random Glucose 166 H Calcium 9.5 06/29/17 06/29/17 12:01 15:59 Sodium Potassium Chloride Carbon Dioxide Anion Gap BUN Creatinine Est GFR ( Amer) Est GFR (Non-Af Amer) POC Glucose (mg/dL) 166 H 221 H Random Glucose Calcium Assessment & Plan (1) Anemia Status: Acute (2) Syncope Status: Acute (3) Leg pain Status: Acute (4) NSTEMI (non-ST elevated myocardial infarction) Status: Acute Priority: High (5) UTI (urinary tract infection) Status: Acute (6) CVA (cerebral vascular accident) Assessment and Plan: TIA and CVA Must be ruled out due to HTN, AMS Status: Acute (7) Seizures Assessment and Plan: Due to Syncope, must be ruled out Status: Acute
--- NOTE | 2017-06-29 21:19 | CP.PCM.PN ---
Subjective - Date & Time of Evaluation Date of Evaluation: 06/29/17 Time of Evaluation: 14:10 Objective - Vital Signs/Intake and Output Vital Signs (last 24 hours): Temp Pulse Resp BP Pulse Ox 97.6 F 71 20 122/70 98 06/29/17 19:17 06/29/17 19:17 06/29/17 19:17 06/29/17 19:17 06/29/17 19:17 - Medications Medications: Current Medications Aspirin (Ecotrin) 81 mg PO HS [facility] Last Admin: 06/28/17 22:02 Dose: 81 mg Calcium/Vitamin D (Oyster Shell Calcium/Vitamin D 500 Mg-200 Iu) 1 tab PO DAILY [facility] Last Admin: 06/29/17 10:59 Dose: 1 tab Enalapril Maleate (Vasotec) 2.5 mg PO HS [facility] Last Admin: 06/28/17 22:02 Dose: 2.5 mg Insulin Lispro Protam/Lispro Human (Humalog Mix 75/25) 22 units SC DIN [facility] Last Admin: 06/29/17 17:09 Dose: 22 units Insulin Lispro Protam/Lispro Human (Humalog Mix 75/25) 26 units SC BRK [facility] Last Admin: 06/29/17 08:44 Dose: 26 units Levothyroxine Sodium (Synthroid) 25 mcg PO DAILY@0630 [facility] Last Admin: 06/29/17 06:05 Dose: 25 mcg Multivitamins/Minerals (Therapeutic-M Tab) 1 tab PO DAILY [facility] Last Admin: 06/29/17 10:58 Dose: 1 tab Oxymetazoline HCl (Nasal Decongestant 15 Ml) 2 spr ROSAMARIA DAILY PRN PRN Reason: Allergy symptoms Pravastatin Sodium (Pravachol) 20 mg PO DAILY [facility] Last Admin: 06/29/17 10:58 Dose: 20 mg Tramadol HCl (Ultram) 50 mg PO BID PRN PRN Reason: Other - Labs Labs: 06/27/17 14:50 06/29/17 10:25 PT 11.4 Seconds (9.8-13.1) 06/27/17 14:50 INR 1.0 (0.9-1.2) 06/27/17 14:50 APTT 26.1 Seconds (25.6-37.1) 06/27/17 14:50 Assessment and Plan (1) Passed out Status: Acute (2) Anemia Status: Acute (3) HTN (hypertension) Status: Chronic
[2017-06-30] MEDS: Levothyroxine 25 MCG TAB PO SCH (06:45)
[2017-06-30 07:41] LABS: THYROID STIMULATING HORMONE 2.08 mIU/ML (0.46-4.68)
[2017-06-30 08:24] VITALS: RESP 20
[2017-06-30] MEDS: Insulin Lispro Mix 75/25 100 units/ml (HumaLog) 10ml SC SCH (08:49)
[2017-06-30] MEDS: Multivitamin With Minerals Tab PO SCH (08:50)
--- NOTE | 2017-06-30 11:55 | MRI ---
PROCEDURE: MRI BRAIN WITHOUT CONTRAST HISTORY: R/O TIA, R/O CVA, R/O Sz COMPARISON: Comparison made with CT scan brain 06/27/2017 TECHNIQUE: Multiplanar, multisequence MR images of the brain were obtained without intravenous contrast enhancement. FINDINGS: HEMORRHAGE: No acute parenchymal, subarachnoid nor extra-axial hemorrhage. No evidence of hemosiderin deposition is identified on gradient echo weighted sequence. DWI: No evidence of an acute or early subacute infarction seen on diffusion imaging. BRAIN PARENCHYMA: Re- demonstrated are mild may chronic periventricular white matter ischemic changes extending peripherally into the deep white matter both cerebral hemispheres. Additionally, there are small of chronic appearing lacunar type infarcts scattered about the deep and subcortical white matter of both cerebral hemispheres the as well as brainstem. . Note these changes are seen to better advantage on this exam as compared to CT scan. No large parenchymal or extra-axial masses or collections seen on this noncontrast exam. Partially empty sella. Moderate generalized volume loss. VENTRICLES: No obstructive hydrocephalus CRANIUM: No gross calvarial abnormalities ORBITS: Changes of bilateral cataract surgery again noted. PARANASAL SINUSES/MASTOIDS: Minor mucosal thickening seen within a few ethmoid air cells BENJAMIN VASCULAR SYSTEM: Skull base flow voids intact. OTHER FINDINGS: None. IMPRESSION: No acute intracranial hemorrhage or infarct. Mild chronic white matter, basal nuclei and brainstem ischemic changes. Moderate generalized volume loss.
[2017-06-30 13:36] VITALS: BP 103/69; PULSE 66; TEMP 98.7; O2SAT 100
--- NOTE | 2017-06-30 22:41 | CP.PCM.PN ---
Subjective - Date & Time of Evaluation Date of Evaluation: 06/30/17 Time of Evaluation: 17:00 - Subjective Subjective: Negative MRI Brain. No focal weakness, no seizures. Border line Vitamin D level to the low side. She is discharged home. Objective - Vital Signs/Intake and Output Vital Signs (last 24 hours): Temp Pulse Resp BP Pulse Ox 98.7 F 66 20 103/69 100 06/30/17 13:36 06/30/17 13:36 06/30/17 13:36 06/30/17 13:36 06/30/17 15:56 - Labs Labs: 06/27/17 14:50 06/29/17 10:25 PT 11.4 Seconds (9.8-13.1) 06/27/17 14:50 INR 1.0 (0.9-1.2) 06/27/17 14:50 APTT 26.1 Seconds (25.6-37.1) 06/27/17 14:50 Assessment and Plan (1) Anemia Status: Acute (2) Syncope Status: Acute (3) Leg pain Status: Acute (4) NSTEMI (non-ST elevated myocardial infarction) Status: Acute (5) UTI (urinary tract infection) Status: Acute (6) CVA (cerebral vascular accident) Status: Acute (7) Seizures Status: Acute
--- NOTE | 2017-07-01 00:40 | CP.PCM.DIS ---
Provider - Provider Date of Admission: 06/29/17 12:08 Attending physician: Real Mitchell MD Time Spent in preparation of Discharge (in minutes): 20 Diagnosis - Discharge Diagnosis (1) Passed out Status: Acute (2) Anemia Status: Acute (3) HTN (hypertension) Status: Chronic Priority: Medium Hospital Course - Lab Results Lab Results: Most Recent Lab Values WBC 7.3 K/uL (4.8-10.8) 06/27/17 14:50 RBC 3.48 Mil/uL (3.80-5.20) L 06/27/17 14:50 Hgb 9.9 g/dL (12.0-16.0) L 06/27/17 14:50 Hct 30.0 % (34.0-47.0) L 06/27/17 14:50 MCV 86.1 fl (81.0-99.0) D 06/27/17 14:50 MCH 28.3 pg (27.0-31.0) 06/27/17 14:50 MCHC 32.8 g/dL (33.0-37.0) L 06/27/17 14:50 RDW 14.2 % (11.5-14.5) 06/27/17 14:50 Plt Count 197 K/uL (130-400) 06/27/17 14:50 MPV 7.9 fl (7.2-11.7) 06/27/17 14:50 Neut % (Auto) 66.6 % (50.0-75.0) 06/27/17 14:50 Lymph % (Auto) 22.9 % (20.0-40.0) 06/27/17 14:50 [place] % (Auto) 7.2 % (0.0-10.0) 06/27/17 14:50 Eos % (Auto) 2.7 % (0.0-4.0) 06/27/17 14:50 Baso % (Auto) 0.6 % (0.0-2.0) 06/27/17 14:50 Neut # 4.8 K/uL (1.8-7.0) 06/27/17 14:50 Lymph # 1.7 K/uL (1.0-4.3) 06/27/17 14:50 [place] # 0.5 K/uL (0.0-0.8) 06/27/17 14:50 Eos # 0.2 K/uL (0.0-0.7) 06/27/17 14:50 Baso # 0.0 K/uL (0.0-0.2) 06/27/17 14:50 PT 11.4 Seconds (9.8-13.1) 06/27/17 14:50 INR 1.0 (0.9-1.2) 06/27/17 14:50 APTT 26.1 Seconds (25.6-37.1) 06/27/17 14:50 D-Dimer, Quantitative 2777 ng/mlDDU (0-230) H 06/27/17 14:50 Sodium 139 mmol/l (132-148) 06/29/17 10:25 Potassium 4.7 MMOL/L (3.6-5.0) 06/29/17 10:25 Chloride 106 mmol/L (98-107) 06/29/17 10:25 Carbon Dioxide 25 mmol/L (22-30) 06/29/17 10:25 Anion Gap 13 (10-20) 06/29/17 10:25 BUN 29 mg/dl (7-17) H 06/29/17 10:25 Creatinine 1.0 mg/dL (0.7-1.2) 06/29/17 10:25 Est GFR ( Amer) > 60 06/29/17 10:25 Est GFR (Non-Af Amer) 56 06/29/17 10:25 POC Glucose (mg/dL) 137 mg/dL (65-110) H 06/30/17 13:09 Random Glucose 166 mg/dL (65-105) H 06/29/17 10:25 Hemoglobin A1c 7.2 % (4.2-6.5) H 06/30/17 04:20 Calcium 9.5 mg/dL (8.4-10.2) 06/29/17 10:25 Phosphorus 3.1 mg/dl (2.5-4.5) 06/27/17 14:50 Magnesium 1.7 MG/DL (1.6-2.3) 06/27/17 14:50 Total Bilirubin 0.3 mg/dl (0.2-1.3) 06/27/17 14:50 AST 30 U/L (14-36) 06/27/17 14:50 ALT 39 U/L (9-52) 06/27/17 14:50 Alkaline Phosphatase 77 U/L (38-126) 06/27/17 14:50 Troponin I < 0.0120 ng/mL (0.00-0.120) 06/28/17 06:00 Total Protein 7.4 G/DL (6.3-8.2) 06/27/17 14:50 Albumin 3.9 g/dL (3.5-5.0) 06/27/17 14:50 Globulin 3.5 gm/dL (2.2-3.9) 06/27/17 14:50 Albumin/Globulin Ratio 1.1 (1.0-2.1) 06/27/17 14:50 Triglycerides 117 mg/DL (0-149) 06/30/17 04:20 Cholesterol 152 mg/dL (0-199) 06/30/17 04:20 LDL Cholesterol Direct 72 mg/dL (0-129) 06/30/17 04:20 HDL Cholesterol 49 MG/DL (30-70) 06/30/17 04:20 25-OH Vitamin D Total 29.2 NG/ML (30.0-100.0) L 06/30/17 04:20 TSH 3rd Generation 2.08 mIU/ML (0.46-4.68) 06/30/17 04:20 Urine Color Yellow (YELLOW) 06/27/17 15:55 Urine Clarity Cloudy (Clear) 06/27/17 15:55 Urine pH 6.0 (5.0-8.0) 06/27/17 15:55 Ur Specific [place] 1.011 (1.003-1.030) 06/27/17 15:55 Urine Protein Negative mg/dL (NEGATIVE) 06/27/17 15:55 Urine Glucose (UA) 50 mg/dL (Normal) 06/27/17 15:55 Urine Ketones Negative mg/dL (NEGATIVE) 06/27/17 15:55 Urine Blood Small (NEGATIVE) 06/27/17 15:55 Urine Nitrate Negative (NEGATIVE) 06/27/17 15:55 Urine Bilirubin Negative (NEGATIVE) 06/27/17 15:55 Urine Urobilinogen 0.2-1.0 mg/dL (0.2-1.0) 06/27/17 15:55 Ur Leukocyte Esterase Small Naomi/uL (Negative) 06/27/17 15:55 Urine RBC (Auto) 10 /hpf (0-3) H 06/27/17 15:55 Urine Microscopic WBC 18 /hpf (0-5) H 06/27/17 15:55 Ur Squamous Epith Cells 5 /hpf (0-5) 06/27/17 15:55 Amorphous Sediment Rare /ul (<OCC) H 06/27/17 15:55 Urine Bacteria Rare (<OCC) 06/27/17 15:55 Hyaline Casts 0-2 /hpf (0-2) 06/27/17 15:55 Rheum Arthritis Panel Negative (NEGATIVE) 06/30/17 04:20 Blood Type A POSITIVE 06/27/17 14:50 Antibody Screen Negative 06/27/17 14:50 BBK History Checked Patient has bt 06/27/17 14:50 Discharge Exam - Head Exam Head Exam: ATRAUMATIC, NORMOCEPHALIC Discharge Plan - Follow Up Plan Condition: GUARDED Disposition: HOME/ ROUTINE
--- NOTE | 2017-07-03 10:53 | EEG ---
CONDITION OF THE RECORDING: The record is obtained for history of syncopal spell followed by altered mental status transiently, rule out seizures and record was obtained while patient was awake, drowsy and asleep. Record was symmetrically equal on both sides with a velocity of 8 cycles per second. The waves are fairly formed, fairly organized in the posterior distribution, moderate in amplitude, reactive to opening by attenuation. There were no abnormal discharges. No spikes. No polyspikes. No sharp waves. No focal slowing or paroxysmal discharge. The record showed periods of drowsiness during which attenuation and slowing of the record were seen and theta waves are seen. The record showed periods of sleep during which delta waves were seen. There were eye movement artifacts, electrode artifacts, and muscle movement artifacts. There were no abnormal discharges. No spikes, polyspikes. No sharp waves. No focal slowing or paroxysmal discharge. The record showed no changes while sleeping, while awake, and while drowsy. In sum, this is a normal awake, drowsy and asleep EEG. There is no evidence of seizures. There is no evidence of encephalopathy. Clinical correlation is recommended. Olegario Torres MD
--- NOTE | 2017-07-04 09:05 | CON ---
KALYANI MCCORMICK ATE: REASON FOR CONSULTATION: The record was obtained for a history of seizures, rule out seizures. The record was symmetrically equal on both sides with a velocity of 8 cycles per second. The waves are fairly formed, fairly organized in a posterior distribution. Moderate in amplitude, reactive to opening by attenuation. There were no abnormal discharges. No spikes. No polyspikes. No sharp waves. No focal slowing. No paroxysmal discharge. There were eye movement artifacts and electrode artifacts. There were periods of drowsiness during which attenuation and slowing of the record were seen and theta waves were seen. The record did not show any periods of sleep. There were eye movement artifact, electrode artifact, and muscle movement artifact. In sum, this is a normal awake and drowsy EEG. Clinical correlation is recommended. Olegario Torres MD
== END 2017-06-30 15:30 | disposition home or self-care (01) | DRG 141 ==
LOC: H.ER 14:02 → H.ERHOLD 18:32 → H.TEL 06-28 21:38 → OBSVTOIN 06-29 12:08 → H.TEL 06-29 22:41
PROVIDERS: ADMIT Internal Medicine; ATTEND Internal Medicine
DX: R55 Syncope and collapse (principal); N39.0 Urinary tract infection, site not specified; I10 Essential (primary) hypertension; D64.9 Anemia, unspecified; E11.9 Type 2 diabetes mellitus without complications; E03.9 Hypothyroidism, unspecified; E78.00 Pure hypercholesterolemia, unspecified; Z96.653 Presence of artificial knee joint, bilateral; Z79.82 Long term (current) use of aspirin